=== PATIENT | female | born 1965 | race Caucasian/White ===

== ENCOUNTER 2020-12-20 05:46 | Emergency (ER) | payer BC, SELFPAY ==
--- NOTE | ~2020-12-20 | CT_ITS ---
EXAMINATION: CT brain wo con DATE: 12/20/2020 07:50 INDICATION: Patient fell and struck left side of head. Neck pain. TECHNIQUE: Computed tomography (CT) of the head was performed without intravenous contrast. The mA wa s adjusted according to patient size. Iterative reconstruction technique was employed. Exam dose: 60 5.33 mGy-cm total exam DLP. COMPARISON: None FINDINGS: No intracranial mass lesion or hemorrhage or cerebrovascular accident is evident. No midlin e shift or mass effect effect. Normal ventricular size. No subdural or epidural hematoma. No fracture or bone destruction of the cranial vault. Included skeletal structures and mastoid air cells are normally developed and aerated. IMPRESSION: No acute intracranial finding or skull fracture Reviewed, dictated and finalized at [facility]. Reviewed, dictated and finalized at [facility].
--- NOTE | ~2020-12-20 | XR_ITS ---
EXAMINATION: XR shoulder LT min 2V DATE: 12/20/2020 07:59 INDICATION: Left shoulder pain. Fall. TECHNIQUE: 4 views of left shoulder were obtained. COMPARISON: Chest CT 03/01/2016 FINDINGS: Bone alignment is normal. No fracture. There is mild osteoarthritis of glenohumeral joint a nd severe osteoarthritis of acromioclavicular joint. IMPRESSION: 1. Polyarticular osteoarthritis. Reviewed, dictated and finalized at [facility].
--- NOTE | ~2020-12-20 | CT_ITS ---
EXAMINATION: CT cervical spine wo con DATE: 12/20/2020 07:50 INDICATION: Patient fell and struck left side of head. Neck pain. TECHNIQUE: Computed tomography (CT) of the cervical spine was performed without intravenous contrast. Automated exposure control and iterative reconstruction technique were employed. Exam dose: 413.59 mGy-cm total exam DLP. COMPARISON: None FINDINGS: There is reversal of cervical curvature. C1 and C2 are normally aligned and the odontoid process is intact. No fracture or dislocation or locked facet or prevertebral soft tissue swelling. There is anterior spurring at C4-5, C5-C6 and C6-7 consistent with mild degenerative disc disease.. IMPRESSION: Reversal of cervical curvature Mild degenerative disc disease of the mid to lower cervical spine No fracture or dislocation Reviewed, dictated and finalized at [facility]. Reviewed, dictated and finalized at [facility].
[2020-12-20 05:50] VITALS: BP 132/79; PULSE 79; RESP 20; TEMP 36.2; O2SAT 100
--- NOTE | 2020-12-20 05:56 | PC.NURSE ---
c-collar applied during triage.
--- NOTE | 2020-12-20 07:06 | PC.NURSE ---
Pt care taken over from ROSALES Goodman.
[2020-12-20 07:09] VITALS: BP 129/72; PULSE 91; RESP 18; RESP 20; O2SAT 100
--- NOTE | 2020-12-20 07:11 | PC.NURSE ---
Dr. Coronado at bedside for pt assessment.
--- NOTE | 2020-12-20 07:16 | ED.FALL ---
HPI - Fall General Chief Complaint: Fall Stated Complaint: fell hit head on dressing Time Seen by Provider: 12/20/20 07:03 Source: patient, family and RN notes reviewed Mode of arrival: ambulatory Limitations: no limitations History of Present Illness HPI Narrative: Patient is 55 years old white female presented to the ED with pain left side of the head, left side of the neck and left ear externally after a fall. Patient is telling me that she got up fast to stop the alarm, was dark, lost her balance and fell hit the bedside dresser, going down to the floor. Patient denies loss of consciousness or other injuries. History of left wrist fracture, currently wearing wrist splint. Related Data Allergies Allergy/AdvReac Type Severity Reaction Status Date / Time codeine Allergy Unknown Unknown Verified 12/20/20 07:07 Review of Systems Review of Systems: Narrative: CONSTITUTIONAL: Denies fever, chills, or sweats. EYES: Denies visual changes, redness, or discharge. ENT: Denies rhinorrhea, congestion, sore throat, or otalgia. CARDIOVASCULAR: Denies chest pain, palpitations, or edema. RESPIRATORY: Denies cough or dyspnea. GASTROINTESTINAL: Denies abdominal pain, nausea, vomiting, or diarrhea. GENITOURINARY: Denies dysuria or hematuria. SKIN: Denies rash or itching. MUSCULOSKELETAL: Denies back pain, joint pain, or myalgia. NEUROLOGIC: Denies headache, numbness, or weakness. PSYCHIATRIC: Denies anxiety or depression. PMFSH Social History Social History Gender identity (if verbalized by the patient): Female Exam Narrative: Exam Narrative: General appearance: Well-developed, well-nourished Skin: Normal color, 1 cm scratch at the back of left ear, slight hematoma and tenderness at the left occipital area Head: Slight tender hematoma left occipital area Eyes: Clear conjunctiva ENT: Oropharynx normal, 1 cm scratch at the back of left ear l, nose normal Neck: C-collar on, mild to moderate tenderness to left side of neck, no bruises or swelling. Chest and respiratory: Airway patent, no respiratory distress, no accessory muscle use Heart: Regular rate/rhythm Abdomen: Soft, nontender, no organomegaly, quiet bowel sounds Vascular: Normal peripheral pulses, normal capillary refill. Musculoskeletal: Slight limited range of motion of left shoulder because of pain, slight tenderness laterally, no bruises, no deformity. Neurologic: Alert and oriented ?3, TRAFFIC INSPECTOR is normal as tested, no gross motor deficit Course Course Emergency Course: Stable Vital Signs Vital signs: Vital Signs Temperature 36.2 C L 12/20/20 05:50 Pulse Rate 79 12/20/20 05:50 Respiratory Rate 20 12/20/20 05:50 Blood Pressure 132/79 12/20/20 05:50 Pulse Oximetry 100 12/20/20 05:50 Temperature 36.2 C L 12/20/20 05:50 Pulse Rate 91 12/20/20 08:34 Respiratory Rate 15 12/20/20 08:34 Blood Pressure 131/76 12/20/20 08:34 Pulse Oximetry 96 12/20/20 08:34 MDM - Fall MDM Narrative Medical decision making narrative: Patient had a fall, probably because getting up from bed fast, was dark, left wrist splint which affected her quick movement. CT brain, CT cervical spine x-ray left shoulder ordered. Morphine 60 mg IM and Zofran ODT 4 mg orally ordered. Further plan to follow Differential Diagnosis Differential diagnosis: Likely concussion without loss of consciousness and other (Neck fracture, shoulder fracture) Imaging Data Radiologist's impression: Impressions Head CT 12/20/20 07:56 IMPRESSION: No acute intracranial finding or skull fracture Cervical Spine CT 12/20/20 07:59 IMPRESSION: Reversal of cervica
--- NOTE | 2020-12-20 07:21 | PC.NURSE ---
Pt to CT.
[2020-12-20] MEDS: MORPHINE SULFATE INJ (*CRX) 10 MG/ML AMP 4 MG IM (07:34)
[2020-12-20] MEDS: ONDANSETRON HCL ODT 4 MG TABLET PO (07:34)
--- NOTE | 2020-12-20 07:49 | PC.NURSE ---
Pt in CT.
[2020-12-20 08:11] VITALS: BP 138/85; PULSE 90; RESP 18; O2SAT 100
[2020-12-20 08:34] VITALS: BP 131/76; PULSE 91; RESP 15; O2SAT 96
--- NOTE | 2020-12-20 08:34 | PC.NURSE ---
Dr. Coronado at bedside to discuss test results and treatment plan with pt.
== END 2020-12-20 08:54 | disposition home or self-care (01) ==
PROVIDERS: Emergency Provider Emergency Medicine
DX: S09.90XA Unspecified injury of head, initial encounter (principal); S40.012A Contusion of left shoulder, initial encounter; M50.321 Other cervical disc degeneration at C4-C5 level; M19.012 Primary osteoarthritis, left shoulder; W01.190A Fall on same level from slipping, tripping and stumbling with subsequent striking against furniture, initial encounter
CPT/HCPCS: 70450; 72125; 73030; 96372; 99284; A9270; J2270; L0140